=== PATIENT | male | born 1935 | race Caucasian/White ===

== ENCOUNTER 2017-06-30 13:31 | Emergency (ER) | payer MEDICARE ==
--- NOTE | 2017-06-30 14:52 | UC ---
Progress - Progress Note Progress Note: As by NEIL to evaluate foot. Pt with quarter sized eschar on volar aspect great toe on left foot. Pt states has had black area for approx 2 months. pt has been applying topical OTC "corn treatment" Pt states has been seen by other physician and told related to skin build up. Pt states over last 4-5 days has had some drainage so came for eval. no fever, chills. No pain. No odor. Pt without DM. not immuocompromised. pt has had vascular bypass to b/l leg eschar non tender no fluctuance + thick, white, organzied disharge milked from wound. no odor. no bleeding. no discomfort Pt with + CBT < 2 sec surrounding wound and on toes + palpable DP pulses foot warm suspect related to vascular dx vs diabetic ulcer recommend xray and ultrasound culture clinda epsom salt soaks wound care f/u with pcp and possibly vascular surgeon in [place] return precautions discussed pt and spouse comfortable and in agreement with plan
--- NOTE | 2017-06-30 15:12 | RAD ---
HISTORY: Right foot plantar wound COMPARISONS: None VIEWS: 3, Frontal, lateral, and oblique views of the right foot FINDINGS: BONE DENSITY: Normal. BONES: There is post surgical change to the first metatarsal with a fixation screw. There is periprosthetic lucency along the screw. There is no appreciable periosteal reaction. 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 SOFT TISSUES: There is soft tissue defect along the lateral aspect of the fifth MTP joint. There is peripheral arterial calcification. OTHER FINDINGS: None. IMPRESSION: 1. POST SURGICAL CHANGE WITH PERIPROSTHETIC LUCENCY OF THE FIXATION SCREW OF THE FIRST METATARSAL CONCERNING FOR LOOSENING. 2. NO APPRECIABLE PERIOSTEAL REACTION. PLAIN FILM FINDINGS OF OSTEOMYELITIS ARE RELATIVELY LATE FINDINGS. IF THERE IS PERSISTENT CLINICAL CONCERN FOR OSTEOMYELITIS, RECOMMEND CORRELATION WITH FOLLOWUP IMAGING, THREE-PHASE BONE SCANNING, WHITE BLOOD CELL SCAN, AND/OR MRI OF THE AFFECTED REGION.
[2017-06-30 15:57] VITALS: BP 116/65
--- NOTE | 2017-06-30 16:01 | RAD ---
Indication: Draining wound RIGHT foot near the distal end of fifth metatarsal. Comparison: June 30, 2017 radiographs. Technique: Ultrasound in the region of the wound at the lateral plantar aspect of the forefoot. REPORT AND IMPRESSION: Diffuse soft tissue edema. Teardrop shaped weakly loculated small fluid collection measuring 0.6 x 0.2 x 0.4 cm within the subcutaneous tissue plane suspicious for a microabscess. No additional loculated fluid collections visualized.
--- NOTE | 2017-06-30 16:56 | UC ---
HPI Wound/Suture Re-check - HPI Summary HPI Summary: FOR THREE MONTHS HAD BEEN TREATING A PLANTAR CALLUS ON (DISTAL 5TH METATARSAL ASPECT OF) LEFT FOOT. TWO DAYS AGO AREA BEGAN BLACKENING AND BLEEDING. NO FEVER. NO HX OF DIABETES. - History Of Current Complaint Hx Obtained From: Patient, Family/Event Planner Onset/Duration: Gradual Onset, Lasting Weeks, Worse Since - TWO DAYS Severity: Moderate Pain Intensity: 0 Pain Scale Used: 0-10 Numeric <Nimesh Agrawal - Last Filed: 06/30/17 16:51> <Kenzie Storm - Last Filed: 06/30/17 17:28> - History Of Current Complaint Chief Complaint: UCLowerExtremity Stated Complaint: RIGHT FOOT COMPLAINT Time Seen by Provider: 06/30/17 14:28 - Allergies/Home Medications Allergies/Adverse Reactions: Allergies Allergy/AdvReac Type Severity Reaction Status Date / Time Iodine Allergy Severe Swelling Verified 06/30/17 13:54 Of Face,Lips,& Throat Shellfish Allergy Allergy Severe Swelling Verified 06/30/17 13:54 Of Face,Lips,& Throat Cephalosporins Allergy Intermediate Diarrhea Verified 06/30/17 13:54 Spironolactone Allergy Intermediate Diarrhea Verified 06/30/17 13:54 [From Aldactone] Home Medications: Home Medications Aspirin [Aspirin 81 MG TAB] 81 mg PO DAILY 06/30/17 [History Confirmed 06/30/17] PMH/Surg Hx/FS Hx/Imm Hx Previously Healthy: Yes - Surgical History Surgical History: Yes Surgery Procedure, Year, and Place: Femoral artery surgeries, 2 or 3 stents placed. 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 [facility] - Family History Known Family History: Positive: Hypertension, Diabetes - Social History Occupation: Retired Lives: With Family Alcohol Use: None Substance Use Type: None Smoking Status (MU): Former Smoker Type: Cigarettes When Did the Patient Quit Smoking/Using Tobacco: 60 yrs ago - Immunization History Most Recent Tetanus Shot: UTD-2015 <Nimesh Agrawal - Last Filed: 06/30/17 16:51> Review of Systems Constitutional: Negative Skin: Other - DRAINING ULCERATION PLANTAR DISTAL FIFTH METATARSAL ASPECT OF LEFT FOOT Eyes: Negative ENT: Negative Respiratory: Negative Cardiovascular: Negative Gastrointestinal: Negative Genitourinary: Negative Motor: Negative Neurovascular: Negative Musculoskeletal: Negative Neurological: Negative Psychological: Negative Is Patient Immunocompromised?: No All Other Systems Reviewed And Are Negative: Yes <NghiaNimesh - Last Filed: 06/30/17 16:51> Physical Exam Triage Information Reviewed: Yes Appearance: Well-Appearing, No Pain Distress, Well-Nourished Vital Signs: Initial Vital Signs Temp 97.8 F 06/30/17 13:41 Pulse 80 06/30/17 13:41 Resp 20 06/30/17 13:41 BP 140/72 06/30/17 13:41 Vital Signs Reviewed: Yes Eye Exam: Normal ENT Exam: Normal ENT: Positive: Normal ENT inspection Dental Exam: Normal Neck exam: Normal Respiratory Exam: Normal Respiratory: Positive: Chest non-tender, Lungs clear, Normal breath sounds, No respiratory distress, No accessory muscle use Cardiovascular Exam: Normal Cardiovascular: Positive: RRR, No Murmur, Pulses Normal Abdominal Exam: Normal Musculoskeletal Exam: Normal Musculoskeletal: Positive: Strength Intact, ROM Intact, No Edema Neurological Exam: Normal Psychological Exam: Normal Skin: Positive: Other - DRAINING ULCERATION PLANTAR DISTAL FIFTH METATARSAL ASPECT OF LEFT FOOT <NghiaNimesh - Last Filed: 06/30/17 16:51> Vital Signs: Initial Vital Signs Temp 97.8 F 06/30/17 13:41 Pulse 80 06/30/17 13:41 Resp 20 06/30/17 13:41 BP 140/72 06/30/17 13:41 <Kenzie Storm - Last Filed: 06/30/17 17:28> Diagnostics - Radiology No standard instances Xray Interpretation: Positive (See Comments) - Interpreted by radiologist, reviewed by RADHA. Interpretation : ULTRASOUND :Diffuse soft tissue edema. Teardrop shaped weakly loculated small fluid collection measuring 0.6 x 0.2 x 0.4 cm within the subcutaneous tissue plane suspicious for a microabscess. No additional loculated fluid collections visualized. FOOT XRAY: 1. POST SURGICAL CHANGE WITH PERIPROSTHETIC LUCENCY OF THE FIXATION SCREW OF THE FIRST METATARSAL CONCERNING FOR LOOSENING. 2. NO APPRECIABLE PERIOSTEAL REACTION. PLAIN FILM FINDINGS OF OSTEOMYELITIS ARE RELATIVELY LATE FINDINGS. IF THERE IS PERSISTENT CLINICAL CONCERN FOR OSTEOMYELITIS, RECOMMEND CORRELATION WITH FOLLOWUP IMAGING, THREE-PHASE BONE SCANNING, WHITE BLOOD CELL SCAN, AND/OR MRI OF THE AFFECTED REGION. Radiology Interpretation Completed By: ED Physician, Radiologist <Nimesh Agrawal - Last Filed: 06/30/17 16:51> Course/Dx - Course Course Of Treatment: HAD BEEN A PATIENT OF [facility]. REFERRED BOTH TO [facility] AND TO [facility]. GIVEN CLINDAMYCIN ADVISED TO HAVE EPSOM SALT SOAKS. - Differential Dx - Laceration/Wound Differential Diagnoses: Abscess, Cellulitis Provider Diagnoses: WOUND INFECTION/ABSCESS PLANTAR DISTAL FIFTH METATARSAL ASPECT OF LEFT FOOT <Nimesh Agrawal - Last Filed: 06/30/17 16:51> Discharge <Nimesh Agrawal - Last Filed: 06/30/17 16:51> <Kenzie Storm - Last Filed: 06/30/17 17:28> - Discharge Plan Condition: Stable Disposition: HOME Prescriptions: Clindamycin Cap(NF) [Clindamycin Cap 300 mg Cap(NF)] 300 mg PO TID #30 cap Patient Education Materials: Wound Infection (ED), Acute Wound Care (ED), Abscess (ED) Referrals: Omer Junior DO [Primary Care Provider] - Additional Instructions: [facility] [phone] [facility] [phone] Attestation Statement User Type: Provider - I was available for consult. This patient was seen by the NEIL. The patient was not presented to, seen by, or examined by me. -Clement <Kenzie Storm - Last Filed: 06/30/17 17:28>
--- NOTE | 2017-07-02 07:18 | UC ---
Progress - Progress Note Progress Note: + wound culture await sensitivity no change 07/02/17 7:18am
== END 2017-06-30 16:36 | disposition home or self-care (01) ==
LOC: UCCORT 13:31
DX: L02.612 Cutaneous abscess of left foot (principal)
CPT/HCPCS: 87070; 87076; 87077; 87205; 87640; 87641; 99213; G0463

== ENCOUNTER 2017-08-09 09:20 | Emergency (ER) | payer MEDICARE ==
[2017-08-09 09:36] VITALS: BP 143/74
--- NOTE | 2017-08-09 09:46 | UC ---
Eye Complaint HPI - HPI Summary HPI Summary: bilateral eye redness x 1 weeks no eye pain , no change in vision , + yellow discharge - History of Current Complaint Chief Complaint: UCEye Stated Complaint: BILATERAL EYE COMPLAINT Time Seen by Provider: 08/09/17 09:32 Hx Obtained From: Patient Onset/Duration: Gradual Onset, Lasting Days - 7, Still Present Timing: Constant Severity Initially: Moderate Severity Currently: Severe Location of Injury: Conjunctiva Aggravating Factor(s): Nothing Alleviating Factor(s): Nothing Associated Signs And Symptoms: Positive: Drainage (Purulent). Negative: Photophobia, Vision Impairment Bilateral, Vision Impairment Right, Vision Impairment Left, Fever, Swelling - Allergies/Home Medications Allergies/Adverse Reactions: Allergies Allergy/AdvReac Type Severity Reaction Status Date / Time Iodine Allergy Severe Swelling Verified 08/09/17 09:36 Of Face,Lips,& Throat Shellfish Allergy Allergy Severe Swelling Verified 08/09/17 09:36 Of Face,Lips,& Throat Cephalosporins Allergy Intermediate Diarrhea Verified 08/09/17 09:36 Spironolactone Allergy Intermediate Diarrhea Verified 08/09/17 09:36 [From Aldactone] PMH/Surg Hx/FS Hx/Imm Hx Cardiovascular History: Hypertension, Atrial Fibrillation Respiratory History: COPD - Surgical History Surgical History: Yes Surgery Procedure, Year, and Place: Femoral artery surgeries, 2 or 3 stents placed. 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 [facility] - Family History Known Family History: Positive: Hypertension, Diabetes - Social History Alcohol Use: None Substance Use Type: None Smoking Status (MU): Former Smoker Type: Cigarettes When Did the Patient Quit Smoking/Using Tobacco: 60 yrs ago - Immunization History Most Recent Tetanus Shot: UTD-2015 Review of Systems Constitutional: Negative Skin: Negative Eyes: Drainage, Eye Redness ENT: Negative Respiratory: Negative Cardiovascular: Negative Is Patient Immunocompromised?: No All Other Systems Reviewed And Are Negative: Yes Physical Exam Triage Information Reviewed: Yes Appearance: Well-Appearing, No Pain Distress, Well-Nourished Vital Signs: Initial Vital Signs Temp 98 F 08/09/17 09:31 Pulse 98 08/09/17 09:31 Resp 22 08/09/17 09:31 BP 143/74 08/09/17 09:31 Pulse Ox 96 08/09/17 09:31 Vital Signs Reviewed: Yes Eye Exam: Normal Eyes: Positive: Conjunctiva Inflamed - bilateral, Discharge - bilateral ENT: Positive: Normal ENT inspection, Hearing grossly normal, Pharynx normal Neck exam: Normal Neck: Positive: Supple, Nontender, No Lymphadenopathy Respiratory: Positive: Chest non-tender, Lungs clear, Normal breath sounds Cardiovascular: Positive: RRR, No Murmur, Pulses Normal Eye Complaint Course/Dx - Differential Dx/Diagnosis Provider Diagnoses: bilateral conjunctivitis Discharge - Discharge Plan Condition: Stable Disposition: HOME Prescriptions: Tobramycin/Dexameth OPTH.SUSP* [Tobradex 0.3-0.1%*] 1 drop BOTH EYES Q4H #1 btl Patient Education Materials: Conjunctivitis (ED) Referrals: Omer Junior DO [Primary Care Provider] - 3 Days
== END 2017-08-09 09:48 | disposition home or self-care (01) ==
LOC: UCCORT 09:20
DX: H10.9 Unspecified conjunctivitis (principal); Z88.1 Allergy status to other antibiotic agents; Z91.013 Allergy to seafood; Z88.8 Allergy status to other drugs, medicaments and biological substances; Z91.09 Other allergy status, other than to drugs and biological substances; I10 Essential (primary) hypertension; J44.9 Chronic obstructive pulmonary disease, unspecified; Z87.891 Personal history of nicotine dependence
CPT/HCPCS: 99212; G0463

== ENCOUNTER 2017-08-10 12:09 | Emergency (ER) | payer MEDICARE ==
[2017-08-10 12:16] VITALS: BP 132/61
--- NOTE | 2017-08-10 12:30 | UC ---
Epistaxis Nasal HPI - HPI Summary HPI Summary: He was on antibiotics for pneumonia recently and then noted that a week ago INR was 3. He was due to have it check again tomorrow but he now has bleeding from the nose and left inner corner of the eye. - History of Current Complaint Chief Complaint: UCGeneralIllness Stated Complaint: BLOODY NOSE Time Seen by Provider: 08/10/17 12:17 Hx Obtained From: Patient, Family/Lathe Set Up Operator Onset/Duration: Gradual Onset, Lasting Hours Timing: Constant Severity Initially: Moderate Severity Currently: Moderate Character: Light Aggravating Factor(s): Nothing Alleviating Factor(s): Pressure Associated Signs And Symptoms: Positive: Negative - Allergies/Home Medications Allergies/Adverse Reactions: Allergies Allergy/AdvReac Type Severity Reaction Status Date / Time Iodine Allergy Severe Swelling Verified 08/10/17 12:14 Of Face,Lips,& Throat Shellfish Allergy Allergy Severe Swelling Verified 08/10/17 12:14 Of Face,Lips,& Throat Cephalosporins Allergy Intermediate Diarrhea Verified 08/10/17 12:14 Spironolactone Allergy Intermediate Diarrhea Verified 08/10/17 12:14 [From Aldactone] PMH/Surg Hx/FS Hx/Imm Hx Previously Healthy: No - chf, afib. recent pneumonia. - Surgical History Surgical History: Yes Surgery Procedure, Year, and Place: Femoral artery surgeries, 2 or 3 stents placed. 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 old crusted blood in the corner of the left eye. Vital Signs: Initial Vital Signs Temp 98.9 F 08/10/17 12:11 Pulse 97 08/10/17 12:11 Resp 24 08/10/17 12:11 BP 132/61 08/10/17 12:11 Pulse Ox 97 01/21/18 12:11 Vital Signs Reviewed: Yes Eyes: Positive: Conjunctiva Inflamed ENT: Positive: Normal ENT inspection Neck: Positive: Supple, Nontender, No Lymphadenopathy Respiratory: Positive: Normal breath sounds, No respiratory distress, No accessory muscle use. Negative: Respiratory distress Cardiovascular: Positive: Other: - irregular. Abdomen Description: Positive: Nontender, No Organomegaly. Negative: Distended , Guarding Neurological: Positive: Alert, Muscle Tone Normal. Negative: Fatigued Psychological: Positive: Age Appropriate Behavior Skin: Negative: rashes Epistaxis Nasal Course/Dx - Course Course Of Treatment: Send to ED for INR testing immediately. They refuse ambulance. D/w Lindsay at [place] [facility] who accepts patient. - Differential Dx/Diagnosis Provider Diagnoses: epistaxis and lacrimal bleeding on coumadin. Discharge - Discharge Plan Condition: Good Disposition: HOME Referrals: Omer Junior DO [Primary Care Provider] - Additional Instructions: REcently on antibiotics for a pneumonia and they had him check his INR one week ago and it was 3. He now has nose bleed and bleeding for the lacrimal duct area of left eye. No other bleeding. Antibiotics are now done.
== END 2017-08-10 12:30 ==
LOC: UCCORT 12:09
DX: R04.0 Epistaxis (principal); H04.89 Other disorders of lacrimal system; Z79.01 Long term (current) use of anticoagulants; Z87.891 Personal history of nicotine dependence
CPT/HCPCS: 99212; G0463

== ENCOUNTER 2017-11-22 10:00 | Emergency (ER) | payer MEDICARE ==
[2017-11-22 10:59] VITALS: BP 92/48
--- NOTE | 2017-11-22 11:00 | UC ---
Respiratory Complaint HPI - HPI Summary HPI Summary: 81 yr old w/ h/o CAD And AFIB here w/ c/o bleeding left arm. s/p cath w/ 1 stent placed w/ Dr Herndon at [facility] 2 days ago. he is on plavix for reecent stent placement and coumadin for AFIB. INR was reportedly nml 2 days ago w/o any change in dose. -[facility] bleeding from cath site. he does not c/o any SPB or CP. he has been tired b/c he has "gone through hell" the past few days per his . -normally wears O2 at HS only and has normal sats during the day per . -denies belly pain, falls or bruising. no melena or BRBPR. - History of Current Complaint Stated Complaint: SKIN COMPLAINT Time Seen by Provider: 11/22/17 10:47 - Allergies/Home Medications Allergies/Adverse Reactions: Allergies Allergy/AdvReac Type Severity Reaction Status Date / Time MS Iodine [Iodine] Allergy Severe Swelling Verified 08/10/17 12:14 Of Face,Lips,& Throat MS Shellfish Allergy Allergy Severe Swelling Verified 08/10/17 12:14 [Shellfish Allergy] Of Face,Lips,& Throat MS Cephalosporins Allergy Intermediate Diarrhea Verified 08/10/17 12:14 [Cephalosporins] MS Spironolactone Allergy Intermediate Diarrhea Verified 08/10/17 12:14 [From Aldactone] PMH/Surg Hx/FS Hx/Imm Hx Previously Healthy: No Cardiovascular History: Hypertension, Atrial Fibrillation Respiratory History: COPD - Surgical History Surgical History: Yes Surgery Procedure, Year, and Place: Femoral artery surgeries, 2 or 3 stents placed. 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 [facility] - Family History Known Family History: Positive: Hypertension, Diabetes - Social History Alcohol Use: None Substance Use Type: None Smoking Status (MU): Former Smoker Type: Cigarettes When Did the Patient Quit Smoking/Using Tobacco: 60 yrs ago - Immunization History Most Recent Tetanus Shot: UTD-2015 Review of Systems Constitutional: Fatigue Skin: Other - bleeding Eyes: Negative ENT: Negative Respiratory: Negative Cardiovascular: Negative Gastrointestinal: Negative Genitourinary: Negative Motor: Negative Neurovascular: Negative Musculoskeletal: Negative Neurological: Negative Psychological: Negative Is Patient Immunocompromised?: No All Other Systems Reviewed And Are Negative: Yes Physical Exam Triage Information Reviewed: Yes Appearance: Well-Nourished, Ill-Appearing Vital Signs Reviewed: Yes Eye Exam: Normal ENT Exam: Normal Neck exam: Normal Neck: Positive: Supple, Nontender, No Lymphadenopathy Respiratory: Positive: Lungs clear, Normal breath sounds, Other: - sitting comfortably but using abdominal muscles to breath,. Negative: Crackles, Rhonchi , Stridor, Wheezing Cardiovascular: Positive: Other: - irreg/irreg Abdomen Description: Positive: Nontender, Soft, Distended Musculoskeletal Exam: Normal Neurological Exam: Normal Psychological Exam: Normal Skin: Positive: Other - left arm with thick whote bandages w/ dark blood soaking through bottom part (applied this morning by his ). right writs with white clean bandage wrapped around cath entry site. Respiratory Course/Dx - Course Course Of Treatment: Hypoxic down to low 70ss without oxygen SBP in 90s w/ bleeding of left arm on coumadin (chronic AFIB) and plavix. He is reluctant to go to ER but his wofe begged him to go and he agreed. transfer via ALS. - Differential Dx/Diagnosis Differential Diagnosis/HQI/PQRI: Other - hypoxia, hypotension Provider Diagnoses: hypoxia, hypotension, hemorrhaging, CAD, AFIb Discharge - Sign-Out/Discharge Documenting (check all that apply): Discharge/Admit/Transfer - Discharge Plan Condition: Fair Disposition: TRANS HIGHER LVL OF CARE FAC Referrals: Omer Junior DO [Primary Care Provider] - - Billing Disposition and Condition Condition: FAIR Disposition: EMTALA
== END 2017-11-22 11:06 | disposition short-term general hospital (02) ==
LOC: UCCORT 10:00
DX: R09.02 Hypoxemia (principal); I95.9 Hypotension, unspecified; I48.91 Unspecified atrial fibrillation; I97.618 Postprocedural hemorrhage of a circulatory system organ or structure following other circulatory system procedure; Z79.01 Long term (current) use of anticoagulants; I25.10 Atherosclerotic heart disease of native coronary artery without angina pectoris; Z88.1 Allergy status to other antibiotic agents; Z91.013 Allergy to seafood; Z91.041 Radiographic dye allergy status; Z87.891 Personal history of nicotine dependence; Z88.8 Allergy status to other drugs, medicaments and biological substances; L76.22 Postprocedural hemorrhage of skin and subcutaneous tissue following other procedure
CPT/HCPCS: 93005; 99213; G0463

== ENCOUNTER 2017-12-31 19:44 | Emergency (ER) | payer MEDICARE ==
[2017-12-31] MEDS ORDERED: Lidocaine 1% INJ* 10 MG/ML 30 ML SDV INJ ONE (20:00)
--- NOTE | 2017-12-31 20:08 | UC ---
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 He was getting out of his car, and the door hit against his leg. As such, Mr. Stahl and his drove directly here to [facility]. + local pain. Hx neuropathy. Denies hx dm. + BLE edema, did not wear compression stockings today. Takes coumadin d/t atrial fibrillation. Last INR 2.6 per spouse. Last tet booster approx 2 years ago, less than 5 yrs ago per pt. No other c/o's, no sob / cp. No loc / weakness. - History Of Current Complaint Stated Complaint: LEFT LEG LACERATION Time Seen by Provider: 12/31/17 19:48 Hx Obtained From: Patient, Family/Secretary Bookkeeper - Allergies/Home Medications Allergies/Adverse Reactions: Allergies Allergy/AdvReac Type Severity Reaction Status Date / Time iodine Allergy Severe swelling Verified 12/31/17 19:58 of face, lips and troat shellfish derived Allergy Severe swelling Verified 12/31/17 19:58 of face, lips and throat Cephalosporins Allergy Unknown Diarrhea Verified 12/31/17 19:58 spironolactone Allergy Unknown Diarrhea Verified 12/31/17 19:58 [From Aldactone] PMH/Surg Hx/FS Hx/Imm Hx Previously Healthy: No - see below - Surgical History Surgical History: Yes Surgery Procedure, Year, and Place: Femoral artery surgeries, 2 or 3 stents placed. 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 hx neuropathy Musculoskeletal: Other: - see hpi Neurological: Negative Psychological: Negative Is Patient Immunocompromised?: No All Other Systems Reviewed And Are Negative: Yes Physical Exam Triage Information Reviewed: Yes Appearance: Well-Appearing, Well-Nourished Vital Signs Reviewed: Yes Eye Exam: Normal - grossly nad ENT Exam: Normal - grossly nad Neck exam: Normal Respiratory Exam: Normal - RR regular, no tachypnea, no dyspnea. Conversing in full sentances, without difficulty. Cardiovascular Exam: Normal - HR regular, nondiaphoretic. Abdominal Exam: Normal Abdomen Description: Positive: Nontender Musculoskeletal Exam: Other - moves x 4 ext's. Palpable dp pulse, pt faint. Foot warm to touch. Toes deformed. + BLE edema apprx 2+. + venous insuff changes, scattered hemosiderosis, paucity of hair growth. LLE ant lat tib - + full thickness laceration. Oozing, controlled with pressure. Approx 10cm length irreg x approx 1.5cm width. Neurological Exam: Normal - grossly nonactionable. + periph neuropathy, although does Psychological Exam: Normal - conversing easily and appropriately. Skin Exam: Other - see above Laceration Course/Dx - Course/Dx Course Of Treatment: Time out performed. Procedure - laceration repair. Usual sterile technique. Local anesthesia with 7cc 1% lidocaine, no epi. Wound cleansed / irrigated by myself during the course of the laceration repair, once anesthesia administered. Repaired with 16 single interrupted 4.0 prolene sutures. Tolerated well. Reviewed wound care and f/u instructions. Questions as posed answered to the best of my ability. - Differential Dx - Laceration/Wound Provider Diagnoses: LLE laceration repair Discharge - Sign-Out/Discharge Documenting (check all that apply): Discharge/Admit/Transfer - Discharge Plan Condition: Improved Disposition: HOME Patient Education Materials: Laceration (ED), Care For Your Stitches (ED) Referrals: Omer Junior DO [Primary Care Provider] - Additional Instructions: Wear your compression stocking. Please put it on tonight before you go to bed. Elevate your foot as much as possible. Compression stocking at least during the day. Wound check / dressing change - tomorrow. This can be done here or with your primary care physician. Go to the Emergency Department for any problems, including albeit not limited to chest pain, short of breath, bleeding not controllable. Keep dressing on until tomorrow. Consider follow up with Wound Clinic. Be sure to maintain follow up with your primary care physician as scheduled on Friday, one week. Cancel your physical therapy appointment on Friday. - Billing Disposition and Condition Condition: IMPROVED Disposition: Home
[2017-12-31 20:15] VITALS: BP 118/54
== END 2017-12-31 21:52 | disposition home or self-care (01) ==
LOC: UCCORT 19:44
DX: S81.812A Laceration without foreign body, left lower leg, initial encounter (principal); Z87.891 Personal history of nicotine dependence; W22.8XXA Striking against or struck by other objects, initial encounter; Y92.9 Unspecified place or not applicable; I48.91 Unspecified atrial fibrillation; Z79.01 Long term (current) use of anticoagulants; Z88.1 Allergy status to other antibiotic agents; Z88.3 Allergy status to other anti-infective agents; Z91.013 Allergy to seafood; Z82.49 Family history of ischemic heart disease and other diseases of the circulatory system; Z83.3 Family history of diabetes mellitus
CPT/HCPCS: 12054; 99212; G0463

== ENCOUNTER 2018-01-01 09:24 | Emergency (ER) | payer MEDICARE ==
[2018-01-01 11:03] VITALS: BP 120/50
--- NOTE | 2018-01-01 11:36 | UC ---
Skin Complaint HPI - HPI Summary HPI Summary: 82 year old with skin concern. Had lac last night and had sutures placed. here for re check wound. feels well . no pain . no fever. no discharge. no concerns. here as advised to f/u in 1 day. no SOB. No CP . - History of Current Complaint Chief Complaint: UCSkin Time Seen by Provider: 01/01/18 10:57 Stated Complaint: BANDAGE CHANGE Hx Obtained From: Patient, Family/Radiator Tester Onset/Duration: Sudden Onset Pain Intensity: 0 Aggravating Factor(s): Nothing Alleviating Factor(s): Nothing - Allergy/Home Medications Allergies/Adverse Reactions: Allergies Allergy/AdvReac Type Severity Reaction Status Date / Time iodine Allergy Severe swelling Verified 01/01/18 10:57 of face, lips and troat shellfish derived Allergy Severe swelling Verified 01/01/18 10:57 of face, lips and throat Cephalosporins Allergy Unknown Diarrhea Verified 01/01/18 10:57 spironolactone Allergy Unknown Diarrhea Verified 01/01/18 10:57 [From Aldactone] Review of Systems Skin: Other - right leg lac Is Patient Immunocompromised?: No All Other Systems Reviewed And Are Negative: Yes PMH/Surg Hx/FS Hx/Imm Hx Previously Healthy: Yes Cardiovascular History: Hypertension, Atrial Fibrillation - Surgical History Surgical History: Yes Surgery Procedure, Year, and Place: Femoral artery surgeries, 2 or 3 stents placed. 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 [facility] - Family History Known Family History: Positive: Hypertension, Diabetes - Social History Occupation: Retired Alcohol Use: None Substance Use Type: None Smoking Status (MU): Former Smoker Type: Cigarettes When Did the Patient Quit Smoking/Using Tobacco: 60 yrs ago - Immunization History Most Recent Tetanus Shot: D-2015 Physical Exam Triage Information Reviewed: Yes Appearance: Well-Appearing, No Pain Distress, Well-Nourished Vital Signs: Initial Vital Signs Temp 97.2 F 01/01/18 10:58 Pulse 80 01/01/18 10:58 Resp 20 01/01/18 10:58 BP 120/50 01/01/18 10:58 Pulse Ox 97 01/01/18 10:58 Vital Signs Reviewed: Yes Neck: Positive: 1 Respiratory Exam: Normal Cardiovascular Exam: Normal Musculoskeletal Exam: Normal Neurological Exam: Normal Psychological Exam: Normal Skin Exam: Normal Skin: Positive: significant lesion(s) - right lateral distal lower extremity with laceration with sutures placed. in tact. well approximated. (+) ecchymosis in the anterior aspect of the lac. no pain to palpation. no streaking. no Homans. minimal oozing of blood around 3 sutures but intact and no acute concerns. Course/Dx - Course Course Of Treatment: healing well . no acute concerns. since still with oozing will place bandage to have on for 1-2 more days - Diagnoses Provider Diagnoses: laceration right leg- -- wound recheck -- f/u as directed for suture removal Discharge - Sign-Out/Discharge Documenting (check all that apply): Discharge/Admit/Transfer - Discharge Plan Condition: Good Disposition: HOME Patient Education Materials: Laceration (DC) Referrals: Omer Junior DO [Primary Care Provider] - 4 Days - Billing Disposition and Condition Condition: GOOD Disposition: Home
== END 2018-01-01 11:43 | disposition home or self-care (01) ==
LOC: UCCORT 09:24
DX: S81.811D Laceration without foreign body, right lower leg, subsequent encounter (principal); X58.XXXD Exposure to other specified factors, subsequent encounter; I10 Essential (primary) hypertension; Z88.8 Allergy status to other drugs, medicaments and biological substances; Z88.1 Allergy status to other antibiotic agents; Z91.013 Allergy to seafood; Z87.891 Personal history of nicotine dependence
CPT/HCPCS: 99212; G0463

== ENCOUNTER 2018-06-10 10:08 | Emergency (ER) | payer MEDICARE ==
--- OUTSIDE RECORDS SUMMARY | 2018-06-10 10:47 | XMS REPORT ---
:1935 External Reference #:[id number] Author Organization [facility] Address [address], [address] [place] [address] Phone [phone] Care Team Providers Name Role Phone Omer Junior DO Care Team Information Hydrostatic Tester Unavailable Omer Junior DO Primary Care Physician Unavailable Payers Type Date Identification Numbers Payment Provider Subscriber Medicare Primary Policy Number: [id number] Medicare Cardalechristiana Stahl JR PayID: [id number] [address] [place] [address] [facility] Policy Number: [id number] [facility] Cardalechristiana Stahl JR PayID: [id number] [address] [place] [address] Problems Date Description Provider Status Onset: 01/25/2013 Umbilical hernia Jayson Perez MD Active Onset: 07/12/2003 Localized, primary osteoarthritis Active Onset: 02/08/2013 Contusion of lower leg Jayson Perez MD Active Onset: 07/12/2003 Arthralgia of the lower leg Active Family History Date Family Member(s) Problem(s) Comments General Heart Attack General Heart Disease Father due to DE () Father 80 Father due to Heart Attack () Mother Heart Disease Mother due to Congestive Heart () Failure Mother 80 Children 2 both living and healthy Siblings 15 Siblings First Brother Heart Disease First Brother due to DE () Second Brother due to Colon Cancer () Third Brother Prostate Cancer Third Brother due to Aneurysm () Fourth Brother due to Motor Vehicle Accident () Fifth Brother due to Lung Cancer () Sixth Brother due to Auto Accident () First Sister due to Kidney Disease () Second Sister due to Esophagus Cancer () Social History Type Date Description Comments Marital Status Lives With Female Partner Home Environment Lives With spouse Diet Patient is on a low sodium diet Occupation Retired Work Status Retired Cigarette Use Former Cigarette Smoker 1 Pack x 15 yrs. Quit 40 yrs ago Daily ETOH Use socially ETOH Use Currently consumes alcohol Recreational Drug Use Never Used Drugs Smoking Patient is a former smoker Daily Caffeine Current Caffeine User Daily Caffeine coffee Exercise Type/Frequency Does not exercise Allergies, Adverse Reactions, Alerts Date Description Reaction Status Severity Comments 11/13/2009 Iodine throat swells active 11/13/2009 Shellfish-derived Products throat swells active Medications Medication Date Status Form Strength Qnty SIG Indications Ordering Provider Tito Levine 05/28 Active Aerosol 100-62.5- 1mont take 1 J44.9 Kh 25mcg/Inh h puff once MD Marvin a day. rinse mouth after use. Montelukast 04/22 Active Tablets 10mg 30tab take 1 J30.89 Kh s tablet MD Marvin daily. Omeprazole Active Capsules DR 20mg 1 po qd MD [facility] Nitroglycerin Active Tablets Sub 0.4mg 25tab 1 tab prn Chris s MD [facility] Colchicine Active Tablets 0.6mg 30tab 1 po qd , prn MD [facility] Allopurinol Active Tablets 300mg 1 po qd MD [facility] Albuterol Sulfate Active Nebulizer (2.5mg/3M prn L) 0.083% MD [facility] Spironolactone Active Tablets 25mg 90tab 1 po qd s Aspirin Active Tablets 81mg 90tab 1 po qd s Simvastatin Active Tablets 20mg 90tab 1 po qd s Albuterol Active Powder 1 puff q4h prn Furosemide Active Tablets 80mg 60tab 1 po s Metolazone Active Tablets 5mg 30tab 1 po qd s Potassium Active Tablets ER 20Meq 1 by mouth Unknown Chloride Brittaney ER / every day Warfarin Sodium Active Tablets 5mg take one tablet by mouth every day or as directed Metoprolol Active Tablets 25mg 1/2 by Unknown Tartrate mouth twice a day Propylthiouracil Active Tablets 50mg bid Valacyclovir HCL Active Tablets 1gm 1 by mouth every day Memantine HCL ER Active Caps ER 7mg take 1 24HR capsule by mouth once daily for 1 week then 2 capsules mathieu... Warfarin Sodium Active Tablets 7.5mg Junior, Omer, Lisinopril Active Tablets 2.5mg take 1 tablet by mouth once daily Fluorometholone Active Suspension 0.1% 1 Gtt each eye once daily Metoprolol 04/22 Hx Tablets ER 25mg 1 by mouth ChrisJayson Succinate 24HR every day MD [facility] - 04/22 Bevespi 04/22 Hx Aerosol 9-4.8mcg/ 10.70 2 puffs J44.9 [facility] /2017 Act 0gm twice MD Marvin - daily. 05/28 please /2018 teach how to use medication . Cephalexin 11/14 Hx Capsules 500mg 28cap 1 tab po s qid pc MD [facility] - 11/21 Plavix Hx Tablets 75mg 90tab 1 po qd farhana Koenig MD Aspirin Hx Tablets 325mg 1 po qd Chris MD [facility] Viagra Hx Tablets 50mg prn Chrsi MD [facility] Propylthiouracil Hx Tablets 50mg 1 po qd MD [facility] - 12/07 Nifedipine Hx Tablets ER 30mg po qd 24HR MD [facility] Neurontin Hx Capsules 300mg 1 po tid Chris MD [facility] Metoprolol Hx Tablets 50mg 60tab 1 po bid Tar farhana Koenig MD - 04/22 Metolazone Hx Tablets 5mg 1 po qd Chris MD [facility] Lipitor Hx Tablets 10mg 90tab 1 po qd Chris s MD [facility] Lasix Hx Tablets 40mg 1 po qd Chris MD [facility] Altace Hx Tablets 10mg 90tab 1 po qd Chris, s MD [facility] Asmanex 120 Hx Aerosol 220mcg/In puff qd Unknown Metered Doses h - 12/07 Warfarin Sodium Hx Tablets 5mg 90tab as s directed - 12/07 Spiriva Hx Capsules 18mcg 30cap 1 po qd Unknown Handihaler s Fluticasone Hx Suspension 50mcg/Act 1 puff bid Unknown Proair HFA Hx Aerosol 108(90Bas 2 puffs e) mcg/ac q4h prn Coumadin Hx Tablets 7.5mg 90tab as s directed - 12/07 Lactulose Hx Solution 10GM/15ML 1-2 times Unknown /0000 a day - 12/07 Multivitamins Hx Capsules 90cap 1 by mouth Unknown / s every day - 12/07 Sulfamethoxazole/ Hx Tablets 800-160mg 14tab Unknown Trimethoprim s - 12/07 Miralax Hx Powder 3350NF 510gm one cap or Unknown /0000 one heaping teaspoonfu l daily intiially; may increase to one twice a day as needed in a few days prn no bm Niacin Hx Capsules ER 500mg / Viagra Hx Tablets 100mg 10tab 1/2 tab po Unknown /0000 s qd prn as needed Levofloxacin Hx Tablets 250mg 10tab 1 po qd s Eliquis Hx Tablets 5mg 60tab 1 tab by Unknown / s mouth twice a day Anoro Ellipta Hx Aerosol 62.5-25mc take one Unknown /0000 g/Inh puff once daily. Singulair Hx Tablets 10mg 1 by mouth / every day Medications Administered in Office Medication Date Status Form Strength Qnty SIG Indications Ordering Provider Depomedrol Administered Injection Fraga, 40mg/1cc 014 Horace Torres D.O. Vital Signs Date Vital Result Comment 05/28/2018 BP Systolic Sitting Right Arm 118 mmHg BP Diastolic Sitting Right Arm 52 mmHg Heart Rate 87 /min Respiratory Rate 24 /min Height 68.5 inches 5'8.50" Weight 204.00 lb BMI (Body Mass Index) 30.6 kg/m2 BSA (Body Surface Area) 2.07 m2 Roxana body weight in kilograms 71 O2 % BldC Oximetry 99 % Ora 05/19/2018 BP Systolic 119 mmHg BP Diastolic 58 mmHg Heart Rate 86 /min Respiratory Rate 20 /min Height 68.5 inches 5'8.50" Weight 204.00 lb BMI (Body Mass Index) 30.6 kg/m2 BSA (Body Surface Area) 2.07 m2 Roxana body weight in kilograms 71 O2 % BldC Oximetry 91 % 04/22/2018 BP Systolic Sitting Left Arm 102 mmHg BP Diastolic Sitting Left Arm 60 mmHg Heart Rate 60 /min Respiratory Rate 18 /min Height 66 inches 5'6" Weight 202.00 lb BMI (Body Mass Index) 32.6 kg/m2 BSA (Body Surface Area) 2.01 m2 Roxana body weight in kilograms 64 O2 % BldC Oximetry 97 % 03/09/2014 BP Systolic Sitting Left Arm 100 mmHg BP Diastolic Sitting Left Arm 62 mmHg Height 66 inches 5'6" Weight 215.00 lb BMI (Body Mass Index) 34.7 kg/m2 BSA (Body Surface Area) 2.06 m2 12/07/2013 BP Systolic Sitting Right Arm 100 mmHg BP Diastolic Sitting Right Arm 60 mmHg Height 68 inches 5'8" Weight 224.00 lb BMI (Body Mass Index) 34.1 kg/m2 BSA (Body Surface Area) 2.14 m2 01/25/2013 BP Systolic Sitting Right Arm 136 mmHg BP Diastolic Sitting Right Arm 70 mmHg Height 69 inches 5'9" Weight 213.00 lb BMI (Body Mass Index) 31.5 kg/m2 BSA (Body Surface Area) 2.12 m2 03/11/2011 BP Systolic Sitting Left Arm 120 mmHg BP Diastolic Sitting Left Arm 91 mmHg Body Temperature 97.6 F Heart Rate 69 /min Height 69 inches 5'9" Weight 221.00 lb BMI (Body Mass Index) 32.6 kg/m2 11/13/2009 Body Temperature 98.0 F Heart Rate 76 /min Respiratory Rate 20 /min Height 69 inches 5'9" Weight 220.00 lb BMI (Body Mass Index) 32.5 kg/m2 11/28/2005 Height 67.5 inches 5'7.50" Weight 220.00 lb 12/27/2002 Height 73 inches 6'1" Weight 228.00 lb Results Test Date Test Result H/L Range Note Basic Metabolic Panel 11/23/2017 Glucose 106 mg/dL 74-106 1 BUN 88 mg/dL High 7-18 1 Creatinine 1.7 mg/dL High 0.6-1.3 1 Glom Filtration Rate, Estimate 41 mL/min >60 1 If 50 mL/min >60 1, 2 BUN/Creat 51.7 ratio 1 Sodium 129 mmol/L Low 136-145 1 Potassium 5.0 mmol/L 3.5-5.1 1 Chloride 99 mmol/L 98-107 1 Carbon Dioxide 23 mmol/L 21-32 1 Anion Gap 7 mEq/L Low 8-16 1 Calcium 8.6 mg/dL 8.5-10.1 1 CBS W/Automated Diff 11/23/2017 White Blood Count 9.8 K/uL 3.4-10.5 1 Red Blood Count 3.28 M/uL Low 4.20-5.80 1 Hemoglobin 11.7 gm/dL Low 12.8-17.0 1 Hematocrit 35.0 % Low 38.0-48.0 1 Mean Cell Volume 106.7 fl High 80.0-96.0 1 Mean Corpuscular HGB 35.7 pg High 27.0-33.0 1 Mean Corpuscular HGB Conc 33.4 g/dL 31.7-36.0 1 Platelet Count 204 K/uL 155-360 1 Red Cell Distri Width SD 61.9 fl High 36-51 1 Red Cell Distri Width %CV 16.5 % High 11.6-15.8 1 Mean Platelet Volume 10.8 fL High 6.6-10.6 1 Neut% 77.3 % High 33.0-73.0 1 Lymph % 8.2 % Low 20.0-42.0 1 [place] % 13.1 % High 0.0-10.0 1 Eo% 1.4 % 0.0-6.6 1 Bas% 0.0 % 0.0-1.1 1 Neut# 7.53 K/uL High 1.8-7.0 1 Lymph # 0.80 K/uL Low 1.0-4.0 1 [place] # 1.28 K/uL High 0.0-0.8 1 Eos # 0.14 K/uL 0.0-0.5 1 Baso # 0.00 K/uL 0.0-0.1 1 Slide Review 11/23/2017 Slide Review DIFF ORDERED 1 Differential-WBC Confirm 11/23/2017 Total Cells Counted 100 #CELLS 1 Neutrophils% 82 % High 33-73 1 Lymph% 11 % Low 20-42 1 Monocyte% 6 % 0-10 1 Eosinophil% 1 % 0-5 1 Platelet Estimate NORMAL 1 Anisocytosis 0-1+ 1 Macrocytosis 1+ 1 Ovalocytes 1+ 1 Fluid Culture W/ Gram 07/28/2017 Gram Stain NO ORGANISMS SEE <SEE NOTE> 3, 4 Stain Gram Stain RARE WHITE BLOOD <SEE NOTE> 3, 5 Fluid Culture NO GROWTH: FINAL <SEE NOTE> 3, 6 Pleural FLD cc/Diff 07/28/2017 Color YELLOW 3 Pleural FLD Appearance CLOUDY 3 Pleural FLD WBC 162 /uL 0-1000 3 Pleural FLD RBC < 90597 /uL 0-40495 3 Pleural FLD Poly 17 % 0-25 3 Pleural Fluid Lymphs 25 % 3 Pleural FLD Other Cell 56 % 3, 7 Pleural FLD Diff Comment . 3, 8 Laboratory test finding 07/28/2017 Pleural Fluid pH 7.5 Not Estab. 3, 9 Pleural FLD Total Protein 2.1 g/dL . 3, 10 Pleural FLD Albumin 1.3 g/dL . 3, 11 Pleural FLD LDH 67 IU/L . 3, 12 Pleural FLD Glucose 167 mg/dL . 3, 13 Pleural FLD Urea 76 mg/dL . 3, 14 Pleural FLD Amylase 29 U/L . 3, 15 Pleural FLD Chloride 104 mmol/L 3, 16 Respiratory Culture W/Gram 07/24/2017 Gram Stain >10 SQUAMOUS EPI <SEE 17, 18 St NOTE> Gram Stain <25 WBC/LPF 17 Gram Stain RARE GRAM POS BA <SEE NOTE> 17, 19 Gram Stain FEW GRAM POSITIV <SEE NOTE> 17, 20 Respiratory Culture RESPIRATORY CHRISTOS <SEE NOTE> 17, 21 Slide Review 07/24/2017 Slide Review (SEE NOTE) 17, 22 CBS W/Automated Diff 07/24/2017 White Blood Count 17.3 K/uL High 3.4-10.5 17 Red Blood Count 4.22 M/uL 4.20-5.80 17 Hemoglobin 13.8 gm/dL 12.8-17.0 17 Hematocrit 42.7 % 38.0-48.0 17 Mean Cell Volume 101.2 fl High 80.0-96.0 17 Mean Corpuscular HGB 32.7 pg 27.0-33.0 17 Mean Corpuscular HGB Conc 32.3 g/dL 31.7-36.0 17 Platelet Count 229 K/uL 155-360 17 Red Cell Distri Width SD 59.0 fl High 36-51 17 Red Cell Distri Width %CV 16.5 % High 11.6-15.8 17 Mean Platelet Volume 10.7 fL High 6.6-10.6 17 Neut% 93.9 % High 33.0-73.0 17 Lymph % 2.6 % Low 20.0-42.0 17 [place] % 3.4 % 0.0-10.0 17 Eo% 0.0 % 0.0-6.6 17 Bas% 0.1 % 0.0-1.1 17 Neut# 16.21 K/uL High 1.8-7.0 17 Lymph # 0.45 K/uL Low 1.0-4.0 17 [place] # 0.58 K/uL 0.0-0.8 17 Eos # 0.00 K/uL 0.0-0.5 17 Baso # 0.01 K/uL 0.0-0.1 17 Continuous Oximetry 07/24/2017 Oximetry 93 % 93-98 17 Fio2 21 21-100 17 Heart Rate 70 BPM 17 Patient Status RESTING 17 Patient Position SITTING ON BEDSI <SEE NOTE> 17, 23 Continuous Oximetry 07/24/2017 Oximetry 92 % Low 93-98 17 O2l/Min 2 L/min 17 Oximetry Delivery N/C 17 Heart Rate 90 BPM 17 Patient Status AMBULATING 17 Patient Position STANDING 17 Continuous Oximetry 07/24/2017 Oximetry 88 % Low 93-98 17 Fio2 21 21-100 17 Heart Rate 90 BPM 17 Patient Status AMBULATING 17 Patient Position STANDING 17 Protime 07/24/2017 Protime 24.8 seconds High 12.0-14.4 17 Inr 2.3 High 0.9-1.1 17, 24 Laboratory test finding 07/24/2017 C-Reactive Protein,Quant 107.0 mg/L High <3.0 17 Comprehensive Metabolic 07/24/2017 Glucose 173 mg/dL High 74-106 17 Panel BUN 70 mg/dL High 7-18 17 Creatinine 1.7 mg/dL High 0.6-1.3 17 Glom Filtration Rate, Estimate 41 mL/min >60 17 If 50 mL/min >60 17, 25 BUN/Creat 41.1 ratio 17 Sodium 139 mmol/L 136-145 17 Potassium 4.0 mmol/L 3.5-5.1 17 Chloride 101 mmol/L 98-107 17 Carbon Dioxide 27 mmol/L 21-32 17 Anion Gap 11 mEq/L 8-16 17 Calcium 9.1 mg/dL 8.5-10.1 17 Total Protein 7.7 g/dL 6.4-8.2 17 Albumin 3.5 g/dL 3.4-5.0 17 Globulin 4.2 g/dL 1.9-4.3 17 Alb/Glob 0.8 ratio 17 Bilirubin,Total 0.5 mg/dL 0.2-1.0 17 Sgot/Ast 19 U/L 15-37 17 SGPT/Alt 22 U/L 12-78 17 Alkaline Phosphatase 63 U/L 45-117 17 Laboratory test finding 07/23/2017 Potassium 3.8 mmol/L 3.5-5.1 17 Magnesium 2.5 mg/dL High 1.8-2.4 17 Aot Request 07/23/2017 Aot Request Already done 17, 26 Tests to be added: MAGNESIUM 17 Laboratory test 07/23/2017 C-Reactive Protein,Quant 124.0 mg/L High <3.0 17, 27 finding Troponin-I 0.059 ng/mL 17, 28 Magnesium 2.4 mg/dL 1.8-2.4 17, 29 Comprehensive Metabolic Panel 07/23/2017 Glucose 155 mg/dL High 74-106 17 BUN 49 mg/dL High 7-18 17 Creatinine 1.3 mg/dL 0.6-1.3 17 Glom Filtration Rate, Estimate 56 mL/min >60 17 If >60 mL/min >60 17, 30 BUN/Creat 37.6 ratio 17 Sodium 137 mmol/L 136-145 17 Potassium 3.2 mmol/L Low 3.5-5.1 17 Chloride 98 mmol/L 98-107 17 Carbon Dioxide 30 mmol/L 21-32 17 Anion Gap 9 mEq/L 8-16 17 Calcium 8.5 mg/dL 8.5-10.1 17 Total Protein 6.8 g/dL 6.4-8.2 17 Albumin 3.1 g/dL Low 3.4-5.0 17 Globulin 3.7 g/dL 1.9-4.3 17 Alb/Glob 0.8 ratio 17 Bilirubin,Total 0.6 mg/dL 0.2-1.0 17 Sgot/Ast 21 U/L 15-37 17 SGPT/Alt 23 U/L 12-78 17 Alkaline Phosphatase 57 U/L 45-117 17 Protime 07/23/2017 Protime 21.5 seconds High 12.0-14.4 17 Inr 1.9 High 0.9-1.1 17, 31 CBS W/Automated Diff 07/23/2017 White Blood Count 13.4 K/uL High 3.4-10.5 17 Red Blood Count 3.88 M/uL Low 4.20-5.80 17 Hemoglobin 12.7 gm/dL Low 12.8-17.0 17 Hematocrit 39.4 % 38.0-48.0 17 Mean Cell Volume 101.5 fl High 80.0-96.0 17 Mean Corpuscular HGB 32.7 pg 27.0-33.0 17 Mean Corpuscular HGB Conc 32.2 g/dL 31.7-36.0 17 Platelet Count 169 K/uL 155-360 17 Red Cell Distri Width SD 59.8 fl High 36-51 17 Red Cell Distri Width %CV 16.5 % High 11.6-15.8 17 Mean Platelet Volume 10.5 fL 6.6-10.6 17 Neut% 95.3 % High 33.0-73.0 17 Lymph % 3.1 % Low 20.0-42.0 17 [place] % 1.6 % 0.0-10.0 17 Eo% 0.0 % 0.0-6.6 17 Bas% 0.0 % 0.0-1.1 17 Neut# 12.73 K/uL High 1.8-7.0 17 Lymph # 0.42 K/uL Low 1.0-4.0 17 [place] # 0.21 K/uL 0.0-0.8 17 Eos # 0.00 K/uL 0.0-0.5 17 Baso # 0.00 K/uL 0.0-0.1 17 Streptococcus Pneumoniae Ag,Ur 07/23/2017 Specimen Source Urine . 17 Streptococcus Pneumoniae Ag,Ur NEGATIVE Negative 17 Body Fluid Culture, Sterile Not Indicated . 17 Organism Id Not indicated. . 17 Please Note: (SEE NOTE) 17, 32 Aot Request 07/23/2017 Aot Request Test(s) added 17, 33 Tests to be added: troponin 17 Aot Request 07/23/2017 Aot Request Test(s) added 17, 34 Tests to be added: magnesium 17 Laboratory test finding 07/22/2017 Troponin-I 0.082 ng/mL 17, 35 Ua RFX Micro & Culture II 07/22/2017 Urine Color YELLOW Yellow 17 Urine Clarity CLEAR Clear 17 Urine Glucose - Dipstick NEGATIVE mg/dL Negative 17 Urine Bilirubin - Dipstick NEGATIVE Negative 17 Urine Ketone NEGATIVE mg/dL Negative 17 Urine Specific Gordon 1.015 1.010-1.030 17 Urine Blood NEGATIVE Negative 17 Urine PH 5.0 Low 6.5-7.5 17 Urine Protein - Dipstick NEGATIVE mg/dL Negative 17 Urine Urobilinogen - Dipstick 0.2 E.U./dL 0.2-1.0 17 Urine Nitrite - Dipstick NEGATIVE Negative 17 Urine Leuk Esterase NEGATIVE Negative 17 Source: URINE, CLEAN CAT <SEE NOTE> 17, 36 Laboratory test 07/22/2017 Legionella Urinary Negative Negative 17, 37 finding Antigen Laboratory test 07/22/2017 Troponin-I 0.077 ng/mL 17, 38 finding C-Reactive Protein,Quant 77.9 mg/L High <3.0 17 Legionella Culture 07/22/2017 Legionella Culture No Legionella sp <SEE 17, 39 NOTE> Blood Culture 07/22/2017 Blood Culture Aerobic NO GROWTH: FINAL <SEE 17 , 40 NOTE> Blood Culture Anaerobic NO GROWTH: FINAL <SEE NOTE> 17, 41 Blood Culture 07/22/2017 Blood Culture Aerobic NO GROWTH: FINAL <SEE NOTE> 17, 42 Blood Culture Anaerobic NO GROWTH: FINAL <SEE NOTE> 17, 43 CBC 04/20/2017 White Blood Count 6.5 K/uL 3.4-10.5 44 Red Blood Count 4.37 M/uL 4.20-5.80 44 Hemoglobin 14.1 gm/dL 12.8-17.0 44 Hematocrit 43.8 % 38.0-48.0 44 Mean Cell Volume 100.2 fl High 80.0-96.0 44 Mean Corpuscular HGB 32.3 pg 27.0-33.0 44 Mean Corpuscular HGB Conc 32.2 g/dL 31.7-36.0 44 Platelet Count 206 K/uL 150-400 44 Red Cell Distri Width %CV 16.8 % High 11.6-15.8 44 Mean Platelet Volume 10.3 fL 6.6-10.6 44 Protime 04/20/2017 Protime 35.8 seconds High 12.0-14.4 44 Inr 3.7 High 0.9-1.1 44, 45 Basic Metabolic Panel 04/20/2017 Glucose 90 mg/dL 74-106 44 BUN 58 mg/dL High 7-18 44 Creatinine 1.4 mg/dL High 0.6-1.3 44 Glom Filtration Rate, Estimate 52 mL/min >60 44 If >60 mL/min >60 44, 46 BUN/Creat 41.4 ratio 44 Sodium 140 mmol/L 136-145 44 Potassium 3.5 mmol/L 3.5-5.1 44 Chloride 101 mmol/L 98-107 44 Carbon Dioxide 32 mmol/L 21-32 44 Anion Gap 7 mEq/L Low 8-16 44 Calcium 8.9 mg/dL 8.5-10.1 44 Laboratory test finding 04/20/2017 Magnesium 2.5 mg/dL High 1.8-2.4 44 Basic Metabolic Panel 04/19/2017 Glucose 115 mg/dL High 74-106 44 BUN 53 mg/dL High 7-18 44 Creatinine 1.6 mg/dL High 0.6-1.3 44 Glom Filtration Rate, Estimate 44 mL/min >60 44 If 54 mL/min >60 44, 47 BUN/Creat 33.1 ratio 44 Sodium 137 mmol/L 136-145 44 Potassium 3.8 mmol/L 3.5-5.1 44 Chloride 98 mmol/L 98-107 44 Carbon Dioxide 30 mmol/L 21-32 44 Anion Gap 9 mEq/L 8-16 44 Calcium 9.0 mg/dL 8.5-10.1 44 Laboratory test finding 04/19/2017 Magnesium 2.5 mg/dL High 1.8-2.4 44 CBC 04/18/2017 White Blood Count 7.1 K/uL 3.4-10.5 44 Red Blood Count 4.49 M/uL 4.20-5.80 44 Hemoglobin 14.5 gm/dL 12.8-17.0 44 Hematocrit 44.6 % 38.0-48.0 44 Mean Cell Volume 99.3 fl High 80.0-96.0 44 Mean Corpuscular HGB 32.3 pg 27.0-33.0 44 Mean Corpuscular HGB Conc 32.5 g/dL 31.7-36.0 44 Platelet Count 211 K/uL 150-400 44 Red Cell Distri Width %CV 17.1 % High 11.6-15.8 44 Mean Platelet Volume 10.7 fL High 6.6-10.6 44 Basic Metabolic Panel 04/18/2017 Glucose 110 mg/dL High 74-106 44 BUN 45 mg/dL High 7-18 44 Creatinine 1.6 mg/dL High 0.6-1.3 44 Glom Filtration Rate, Estimate 44 mL/min >60 44 If 54 mL/min >60 44, 48 BUN/Creat 28.1 ratio 44 Sodium 136 mmol/L 136-145 44 Potassium 3.7 mmol/L 3.5-5.1 44 Chloride 96 mmol/L Low 98-107 44 Carbon Dioxide 33 mmol/L High 21-32 44 Anion Gap 7 mEq/L Low 8-16 44 Calcium 9.4 mg/dL 8.5-10.1 44 Laboratory test finding 04/18/2017 Magnesium 2.4 mg/dL 1.8-2.4 44 CBC 04/17/2017 White Blood Count 8.9 K/uL 3.4-10.5 44 Red Blood Count 4.25 M/uL 4.20-5.80 44 Hemoglobin 13.8 gm/dL 12.8-17.0 44 Hematocrit 42.6 % 38.0-48.0 44 Mean Cell Volume 100.2 fl High 80.0-96.0 44 Mean Corpuscular HGB 32.5 pg 27.0-33.0 44 Mean Corpuscular HGB Conc 32.4 g/dL 31.7-36.0 44 Platelet Count 185 K/uL 150-400 44 Red Cell Distri Width %CV 17.4 % High 11.6-15.8 44 Mean Platelet Volume 10.6 fL 6.6-10.6 44 Protime 04/17/2017 Protime 26.6 seconds High 12.0-14.4 44 Inr 2.5 High 0.9-1.1 44, 49 Basic Metabolic Panel 04/17/2017 Glucose 84 mg/dL 74-106 44 BUN 43 mg/dL High 7-18 44 Creatinine 1.6 mg/dL High 0.6-1.3 44 Glom Filtration Rate, Estimate 44 mL/min >60 44 If 54 mL/min >60 44, 50 BUN/Creat 26.8 ratio 44 Sodium 135 mmol/L Low 136-145 44 Potassium 4.2 mmol/L 3.5-5.1 44 Chloride 96 mmol/L Low 98-107 44 Carbon Dioxide 32 mmol/L 21-32 44 Anion Gap 7 mEq/L Low 8-16 44 Calcium 9.0 mg/dL 8.5-10.1 44 Laboratory test finding 04/17/2017 Magnesium 2.3 mg/dL 1.8-2.4 44 Legionella Culture 04/15/2017 Legionella Culture (SEE NOTE) 44, 51 Arterial Blood Gas 02/21/2016 Abraham's Test YES Performed? Arterial Blood Gas pH 7.47 High 7.35-7.45 Arterial Blood Gas Pco2 37 mmHg 35-45 Arterial Blood Gas Po2 82 mmHg 80-105 ABG Hco3 26 mEq/L 22-26 ABG Base Excess 3 mEq/L High -2-2 ABG O2 Saturation 96 % 90-99 Arterial Blood Gas Type OXYGEN Arterial Blood Gas L/M 3 L/MIN 0-20 Arterial Blood Gas Del. N/C Arterial Blood Gas Site R.RAD.ART. Arterial Blood Gas See Note 52 Basic Metabolic Panel 03/30/2013 Glucose 123 mg/dL High 76-115 BUN 18 mg/dL 5-23 Creatinine 1.1 mg/dL 0.5-1.4 Glom Filtration Rate, Estimate >60 mL/min >60 If >60 mL/min >60 53 BUN/Creat 16.3 ratio Sodium 136 mmol/L 136-145 Potassium 3.8 mmol/L 3.5-5.1 Chloride 98 mmol/L 98-107 Carbon Dioxide 34 mEq/L High 18-29 Anion Gap 8 mEq/L 8-16 Calcium 9.0 mg/dL 8.5-10.1 Culture Anaerobic 02/11/2013 Gram Stain; Anaerobic Specimen See Note 54 Anaerobic Culture See Note 55 Routine Culture W/ Gram Stain 02/11/2013 Gram Stain See Note 56 Aerobic Culture See Note 57 Protime 02/10/2013 Protime 19.7 seconds High 12.0-14.4 Laboratory test finding 02/10/2013 Inr 1.7 High 0.9-1.1 58 Laboratory test finding 02/08/2013 Inr 1.9 High 0.9-1.1 59 Protime 02/08/2013 Protime 21.4 seconds High 12.0-14.4 Routine Culture W/ Gram Stain 11/15/2009 Gram Stain See Note 60 Aerobic Culture See Note 61 Anaerobic Culture W/ GR Stain 11/15/2009 Gram Stain; Anaerobic See Note 62 Specimen Anaerobic Culture See Note 63 Laboratory test finding 11/14/2009 Cyst, Cutaneous See Note 64 1 ACUTE KIDNEY INJURY 2 Note: Persistent reduction for 3 months or more in an eGFR <60 mL/min/1.73 m2 defines CKD. Patients with eGFR values >/=60 mL/min/1.73 m2 may also have CKD if evidence of persistent proteinuria is present. The original MDRD equation for estimated GFR is not valid for patients less than 18 years of age. Additional information may be found at www.[facility].org. 3 PLEURAL EFFUSION 4 NO ORGANISMS SEEN 5 RARE WHITE BLOOD CELLS 6 NO GROWTH: FINAL REPORT 7 11 MESOTHELIAL 47 MACROPHAGES 8 Hematology Consultation Final Report Case# [id number] Final Diagnosis Specimen labeled pleural fluid, cytospin: -the specimen shows benign mesothelial cells, monocytes, neutrophils, lymphocytes, and red blood cells. GY 07/29/17 Gross Description: pleural fluid MU COLON MD, Pathologist Reported 07/29/2017 at 11:44, Report electronically signed Performed at: [facility] [address] [address] 9 This test was developed and its performance characteristics determined by [employer]. It has not been cleared or approved by the Food and Drug Administration. Performed at: RN - [facility] [address] [id number] Property Utilization Manager: Sweta Hernadez MD, Phone: [phone] 10 : Peritoneal : Pleural : Synovial : : : : : : : Transudate : Exudate : : : : : : : : Not Estab. : <3 g/dL : >3 g/dL : <2.5 g/dL : : : : : : The method performance specifications have not been established for this test in body fluid. The test result should be integrated into the clinical context for interpretation. The method performance specifications have not been established for this test in body fluid. The test result should be integrated into the clinical context for interpretation. 11 : Peritoneal : Pleural : Synovial : : : : : : : Transudate : Exudate : : : : : : : : Not Estab. : Not Estab. : Not Estab.: Not Estab. : : : : : : The method performance specifications have not been established for this test in body fluid. The test result should be integrated into the clinical context for interpretation. The reference intervals and other method performance specifications have not been established for this test. The test result should be integrated into the clinical context for interpretation. 12 : Peritoneal : Pleural : Synovial : CSF : : : : : : : : Transudate: Exudate : : : : : : : : : : Not Estab. : <200 U/L : >200 U/L : <240 U/L : Not Estab.: : : : : : The method performance specifications have not been established for this test in body fluid. The test result should be integrated into the clinical context for interpretation. The reference intervals and other method performance specifications have not been established for this test. The test result should be integrated into the clinical context for interpretation. 13 : Peritoneal : Pleural : Synovial : : : : : : : Transudate : Exudate : : : : : : : : Not Estab. : Equal to simultaneously drawn plasma : : : : The method performance specifications have not been established for this test in body fluid. The test result should be integrated into clinical context for interpretation. The reference intervals and other method performance specifications have not been established for this test. The test result should be integrated into the clinical context for interpretation. 14 : Peritoneal : Pleural : Synovial : : : : : : : Transudate : Exudate : : : : : : : : 3-27 mg/dL : Not Estab. : Not Estab.: Not Estab. : : : : : : The method performance specifications have not been established for this test in body fluid. The test result should be integrated into the clinical context for interpretation. The reference intervals and other method performance specifications have not been established for this test. The test result should be integrated into the clinical context for interpretation. Performed at: [address] [id number] Property Utilization Manager: Sweta Hernadez MD, Phone: [phone] No Reference Range has been established for analyte. 15 : Peritoneal : Pleural : Synovial : : : : : : : Transudate : Exudate : : : : : : : : 88-109 U/L : Not Estab. : Not Estab.: Not Estab. : : : : : : The method performance specifications have not been established for this test in body fluid. The test result should be integrated into the clinical context for interpretation. The method performance specifications have not been established for this test in body fluid. The test result should be integrated into the clinical context for interpretation. 16 : Peritoneal : Pleural : Synovial : : : : : : : Transudate : Exudate : : : : : : : : Not Estab. : Not Estab. : Not Estab.: Not Estab. : : : : : : The method performance specifications have not been established for this test in body fluid. The test result should be integrated into the clinical context for interpretation. The reference intervals and other method performance specifications have not been established for this test. The test result should be integrated into the clinical context for interpretation. Performed at: RN - [facility] [address] [id number] Property Utilization Manager: Sweta Hernadez MD, Phone: [phone] 17 SEPSIS, CELLULITIS CHF 18 >10 SQUAMOUS EPITHELIAL CELLS/LPF 19 RARE GRAM POS BACILLI SUGGESTIVE OF DIPTHEROIDS 20 FEW GRAM POSITIVE COCCI 21 RESPIRATORY SHYANN 22 Instrument flagged sample for slide review. Less than 10% Bands seen, no other immature WBC's seen. RBC morphology essentially normal. Platelet estimate=NORMAL 23 SITTING ON BEDSIDE 24 THERAPEUTIC INR RANGE: 2.0 - 3.0 DVT, Pulmonary embolus, prophylaxis against venous thrombosis or systemic embolization in high risk patients. 2.5 - 3.5 Mechanical heart valves 25 Note: Persistent reduction for 3 months or more in an eGFR <60 mL/min/1.73 m2 defines CKD. Patients with eGFR values >/=60 mL/min/1.73 m2 may also have CKD if evidence of persistent proteinuria is present. The original MDRD equation for estimated GFR is not valid for patients less than 18 years of age. Additional information may be found at [email or web address]. 26 Tests: MAGNESIUM Instructions: 27 TROP ADDED AT 1147 PER TRM 28 0.0 - 0.045 ng/mL: Normal 0.046 - 0.5 ng/mL: Suggestive 0.6 - 1.5 ng/mL: Consistent 29 TROP ADDED AT 1147 PER TRM 30 Note: Persistent reduction for 3 months or more in an eGFR <60 mL/min/1.73 m2 defines CKD. Patients with eGFR values >/=60 mL/min/1.73 m2 may also have CKD if evidence of persistent proteinuria is present. The original MDRD equation for estimated GFR is not valid for patients less than 18 years of age. Additional information may be found at [email or web address]. 31 THERAPEUTIC INR RANGE: 2.0 - 3.0 DVT, Pulmonary embolus, prophylaxis against venous thrombosis or systemic embolization in high risk patients. 2.5 - 3.5 Mechanical heart valves 32 [employer] standards require a culture to be performed on CSF specimens submitted for bacterial antigen testing. (CAP [id number]) Urine specimens will not be cultured. Performed at: - [facility] [id number] Property Utilization Manager: Mark Handley MD, Phone: [phone] 33 Tests: troponin Instructions: 34 Tests: magnesium Instructions: 35 0.0 - 0.045 ng/mL: Normal 0.046 - 0.5 ng/mL: Suggestive 0.6 - 1.5 ng/mL: Consistent 36 URINE, CLEAN CATCH 37 Presumptive negative for L. pneumophila serogroup 1 antigen in urine, suggesting no recent or current infection. Legionnaires' disease cannot be ruled out since other serogroups and species may also cause disease. 38 0.0 - 0.045 ng/mL: Normal 0.046 - 0.5 ng/mL: Suggestive 0.6 - 1.5 ng/mL: Consistent 39 No Legionella species isolated. Performed at: - [facility] [address] [id number] Property Utilization Manager: Sweta Hernadez MD, Phone: [phone] 40 NO GROWTH: FINAL REPORT 41 NO GROWTH: FINAL REPORT 42 NO GROWTH: FINAL REPORT 43 NO GROWTH: FINAL REPORT 44 CHF, CELLUITIS LEGS, SEVERE SEPSIS 45 THERAPEUTIC INR RANGE: 2.0 - 3.0 DVT, Pulmonary embolus, prophylaxis against venous thrombosis or systemic embolization in high risk patients. 2.5 - 3.5 Mechanical heart valves 46 Note: Persistent reduction for 3 months or more in an eGFR <60 mL/min/1.73 m2 defines CKD. Patients with eGFR values >/=60 mL/min/1.73 m2 may also have CKD if evidence of persistent proteinuria is present. The original MDRD equation for estimated GFR is not valid for patients less than 18 years of age. Additional information may be found at [email or web address]. 47 Note: Persistent reduction for 3 months or more in an eGFR <60 mL/min/1.73 m2 defines CKD. Patients with eGFR values >/=60 mL/min/1.73 m2 may also have CKD if evidence of persistent proteinuria is present. The original MDRD equation for estimated GFR is not valid for patients less than 18 years of age. Additional information may be found at [email or web address]. 48 Note: Persistent reduction for 3 months or more in an eGFR <60 mL/min/1.73 m2 defines CKD. Patients with eGFR values >/=60 mL/min/1.73 m2 may also have CKD if evidence of persistent proteinuria is present. The original MDRD equation for estimated GFR is not valid for patients less than 18 years of age. Additional information may be found at [email or web address]. 49 THERAPEUTIC INR RANGE: 2.0 - 3.0 DVT, Pulmonary embolus, prophylaxis against venous thrombosis or systemic embolization in high risk patients. 2.5 - 3.5 Mechanical heart valves 50 Note: Persistent reduction for 3 months or more in an eGFR <60 mL/min/1.73 m2 defines CKD. Patients with eGFR values >/=60 mL/min/1.73 m2 may also have CKD if evidence of persistent proteinuria is present. The original MDRD equation for estimated GFR is not valid for patients less than 18 years of age. Additional information may be found at [email or web address]. 51 No Legionella species isolated. Performed at: RN - [facility] [address] [id number] Property Utilization Manager: Sweta Hernadez MD, Phone: [phone] 52 WRONG ADMISSION USED FOR THIS PATIENT FOR ABG DOCUMENTATION. 53 Note: Persistent reduction for 3 months or more in an eGFR <60 mL/min/1.73 m2 defines CKD. Patients with eGFR values >/=60 mL/min/1.73 m2 may also have CKD if evidence of persistent proteinuria is present. The original MDRD equation for estimated GFR is not valid for patients less than 18 years of age. Additional information may be found at [email or web address]. 54 GRAM STAIN ! FEW WHITE BLOOD CELLS ! NO ORGANISMS SEEN 55 Organism 1 ! NO GROWTH 56 GRAM STAIN ! FEW WHITE BLOOD CELLS ! NO ORGANISMS SEEN 57 NO GROWTH: FINAL REPORT 58 THERAPEUTIC INR RANGE: 2.0 - 3.0 DVT, Pulmonary embolus, prophylaxis against venous thrombosis or systemic embolization in high risk patients. 2.5 - 3.5 Mechanical heart valves 59 THERAPEUTIC INR RANGE: 2.0 - 3.0 DVT, Pulmonary embolus, prophylaxis against venous thrombosis or systemic embolization in high risk patients. 2.5 - 3.5 Mechanical heart valves 60 GRAM STAIN ! VERY FEW GRAM POSITIVE COCCI 61 Organism 1 ! NO GROWTH 62 GRAM STAIN ! NO ORGANISMS SEEN 63 FEW NON-VIABLE ANAEROBIC GRAM POSITIVE BACILLI, PROBABLE PROPIONBACTERIUM 64 OPERATION/PROCEDURE Exc. left neck lump DIAGNOSIS: "LEFT NECK CYST": RUPTURED EPIDERMAL INCLUSION CYST. PRADIP/marissa 1216 GROSS Received in formalin labeled "LEFT NECK LUMP" is a 2.5 x 2.1 x 1.8 cm. piece of dillard rubbery tissue with attached skin ellipse measuring 2.5 x 0.6 cm. The majority of the tissue is composed of thin walled cyst with cream cheese-like contents. The surgical margin is inked, the specimen serially sectioned and hostess party sales representative section is submitted in one block. ADA/marissa MICROSCOPIC Sections show sections of skin and dermis with a massive acute inflammatory reaction with sheets of polynuclear lymphocytes, adjacent to a thin walled cystic structure lined by squamous epithelium with a granular layer and central keratinous debris. PRE OPERATIVE DIAGNOSIS Left neck infected cyst REVIEW CODE CODE: I MARK Osorio MD 11/16/09 Procedures Date CPT Code Description Status 05/19/2018 23854 Pare Hyperkeratotic Lesion, 2-4 Completed 05/11/2018 87771 Bronchospasm Provocation Evaluation Multi Spirometric Completed Determinati 05/11/2018 97704 Spirometry Completed 04/16/2017 38512 Echocardiogram Complete Completed 09/04/2016 81545 Stress Test Interpre And Report Only Completed 09/04/2016 03402 Stress Test Physician Super Only Completed 09/04/2016 90468 Myocardial Imaging Tomographic Multiple Study AT Rest Completed Or Stress 05/22/2015 93762 Echocardiogram Complete Completed 12/07/2013 28732 Radiology, Both Knees Standing Completed 12/07/201371725 Asp./Injection major joint Completed 10/11/2013 81908 Conscious Sedation For Colonsocopy Completed 04/05/2013 80180 Holter Monitor 24HR Inter/Report Completed 03/02/2013 24212 Holter Monitor 24HR Inter/Report Completed 02/11/2013 61888 Incision And Drainage Of Hematoma, Seroma Or Fluid Completed Collection 02/08/2013 66461 Incision And Drainage Of Hematoma, Seroma Or Fluid Completed Collection 01/07/2013 49149 Echocardiogram Complete Completed 10/30/2010 02400 Anesthesia, Lens Surgery Completed 10/16/2010 49635 Anesthesia, Lens Surgery Completed 03/14/2010 60563 EKG Interpretation And Report Only Completed 02/26/2010 65860 Echocardiogram Complete Completed 11/14/2009 28801 I&D Abscess-Complicated/Multiple Completed 10/21/2008 66713 EKG Interpretation And Report Only Completed 10/20/2008 57227 Echocardiogram Complete Completed 07/21/2007 Colonoscopy Completed 11/28/200514689 Asp./Injection major joint Completed Encounters Type Date Location Provider CPT E/M Dx Office Visit 04/22/2018 3:00p [place] [address] J44.9 J90 J30.89 Office Visit 04/16/2017 3:13p Cardiology Office [place], Per MNichol, [address] I50.9 M.D., [facility] I50.32 J90 L03.115 A41.9 Office Visit 11/09/2014 1[facility] [place] [address] [facility] 491.21 Office Visit 02/22/2014 2:45p Orthopaedic Office Horace Fraga, 80688 717.2 D.O. Office Visit 01/12/2014 2:00p Orthopaedic Office Horace Fraga, 03868 717.2 D.O. Office Visit 12/07/2013 1:30p Orthopaedic Office Horace Fraga, 69790 715.16 D.O. Office Visit 10/05/2013 3:00p [facility] Lalo Matos, 60229 569.3 [facility].DNichol 496 427.31 428.0 Office Visit 02/08/2013 11:00a [place] [address] 924.10 Office Visit 01/25/2013 2:00p [place] [address] 553.1 Office Visit 03/11/2011 10:00a [place] [address] 553.1 Office Visit 11/20/2009 3:00p [place] [address] 706.2 Office Visit 11/15/2009 1:00p [place] [address] 706.2 Office Visit 01/04/2009 10:45a [place] [address] 784.2 Plan of Care Future Appointment(s):09/29/2018 11:00 am - Gwen Dubon PA at [email or web address]/ 08/2019 9:45 am - Amanuel Hickey DPM at Podiatry Vjogyv9405/28/2018 - Marvin Bolton MDJ44.9 Chronic obstructive pulmonary disease, unspecifiedNew Medication: Trelegy Ellipta 100-62.5-25 mcg/InhComments:You can finish this months supply of Bevespi. You will then start Trelegy (triple inhaler) one puff in the morning. You should use your albuterol nebulizer 1 hour prior to going to sleep.Follow up:4 [id number] Pleural effusion, not elsewhere classifiedNew Xrays: Chest, 2 Views
--- NOTE | 2018-06-10 10:51 | UC ---
Shortness of Breath HPI - HPI Summary HPI Summary: 82-year-old male comes to clinic today with a chief complaint of shortness of breath. Patient is chronically on oxygen. He has a history of atrial fibrillation is on Coumadin. He also has history of CHF and COPD and pleural effusion. The shortness breath got worse about one week ago. He's having to sit up at night and increase his oxygen to 3-1/2 L at night. He does have pedal edema. He has sputum but is not been able bringing up. Denies any fevers. Denies chest pain. - History of Current Complaint Chief Complaint: UCRespiratory Stated Complaint: SOB Time Seen by Provider: 06/10/18 10:09 - Allergy/Home Medications Allergies/Adverse Reactions: Allergies Allergy/AdvReac Type Severity Reaction Status Date / Time iodine Allergy Severe swelling Verified 06/10/18 10:12 of face, lips and troat shellfish derived Allergy Severe swelling Verified 06/10/18 10:12 of face, lips and throat Cephalosporins Allergy Unknown Diarrhea Verified 06/10/18 10:12 spironolactone Allergy Unknown Diarrhea Verified 06/10/18 10:12 [From Aldactone] PMH/Surg Hx/FS Hx/Imm Hx Cardiovascular History: Congestive Heart Failure, Atrial Fibrillation Respiratory History: COPD - Surgical History Surgical History: Yes Surgery Procedure, Year, and Place: Femoral artery surgeries, 2 or 3 stents placed. 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 [facility] - Family History Known Family History: Positive: Hypertension, Diabetes - Social History Alcohol Use: None Substance Use Type: None Smoking Status (MU): Former Smoker Type: Cigarettes When Did the Patient Quit Smoking/Using Tobacco: 60 yrs ago - Immunization History Most Recent Tetanus Shot: UTD-2016 Review of Systems All Other Systems Reviewed And Are Negative: Yes Constitutional: Positive: Other - GENERALIZED WEAKNESS AND FATIGUE Skin: Positive: Negative Eyes: Positive: Negative ENT: Positive: Negative Respiratory: Positive: Shortness Of Breath, Cough Cardiovascular: Positive: Negative. Negative: Chest Pain Gastrointestinal: Positive: Negative Motor: Positive: Weakness Neurovascular: Positive: Negative Musculoskeletal: Positive: Edema Neurological: Positive: Weakness Psychological: Positive: Negative Is Patient Immunocompromised?: No Physical Exam Triage Information Reviewed: Yes Appearance: No Pain Distress, Other: - Patient appears weak and short of breath. Vital Signs: Initial Vital Signs Temp 96.6 F 06/10/18 10:13 Pulse 99 06/10/18 10:13 Resp 26 06/10/18 10:13 BP 132/51 06/10/18 10:13 Pulse Ox 84 06/10/18 10:13 Vital Signs Reviewed: Yes Eye Exam: Normal Eyes: Positive: Conjunctiva Clear ENT: Positive: Other - ORAL MUCOSA MOIST Neck exam: Normal Neck: Positive: Supple Respiratory: Positive: Respiratory distress - MILD AT REST, Rhonchi Cardiovascular: Positive: Other: - IRREGULAR Abdomen Description: Positive: Distended Musculoskeletal: Positive: Edema @ Neurological Exam: Normal Neurological: Positive: Alert Psychological Exam: Normal Psychological: Positive: Age Appropriate Behavior Skin Exam: Normal Shortness of Breath Dx - Course Course Of Treatment: The chest x-ray shows a left-sided infiltrate. I discussed this with the patient and his . They agreed to go to [facility] emergency department by ambulance. - Differential Dx/Diagnosis Provider Diagnoses: PNEUMONIA. SHORTNESS OF BREATH Discharge - Sign-Out/Discharge Documenting (check all that apply): Patient Departure All imaging exams completed and their final reports reviewed: Yes - Discharge Plan Condition: Stable Disposition: TRANS HIGHER LVL OF CARE FAC Referrals: Omer Junior DO [Primary Care Provider] - - Billing Disposition and Condition Condition: STABLE Disposition: Trans Higher Lvl of Care Fac
[2018-06-10] MEDS ORDERED: Albuterol/Ipratropium NEB.SOL* Albuterol 2.5 MG/Ipratropium 0.5 MG 3 ML INH ONE (10:52)
[2018-06-10 12:03] VITALS: BP 124/62
== END 2018-06-10 11:55 | disposition short-term general hospital (02) ==
LOC: UCCORT 10:08
DX: J18.9 Pneumonia, unspecified organism (principal); R06.02 Shortness of breath; J44.9 Chronic obstructive pulmonary disease, unspecified; I50.9 Heart failure, unspecified; Z91.013 Allergy to seafood; Z88.1 Allergy status to other antibiotic agents; Z88.8 Allergy status to other drugs, medicaments and biological substances; Z87.891 Personal history of nicotine dependence
CPT/HCPCS: 71046; 93005; 99213; A9270-GY; G0463

== ENCOUNTER 2018-07-20 11:04 | Emergency (ER) | payer MEDICARE ==
[2018-07-20 12:36] VITALS: BP 120/65
--- NOTE | 2018-07-20 13:27 | UC ---
Respiratory Complaint HPI - HPI Summary HPI Summary: Patient presents to urgent care with his . Patient has had a cough for 2-3 weeks. Patient has home physical therapy. She the physical therapist listened to his lungs and stated there was "noise "on the right base. Patient came to urgent care to be evaluated. Patient without fevers or chills. Patient without nausea vomiting. Patient without production to his cough. Patient states eating and drinking well. No changes to his bowel water. Patient was seen at urgent care in May for similar. At that time patient was diagnosed with a right pleural effusion. Patient is on 80 mg of Lasix twice a day. Patient has had thoracentesis with substantial fluid removed per his . Patient states he feels fine and doesn't know why he is here. Patient's medications reviewed this visit. Patient with a long list of past medical history that was also reviewed. 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, Medical Records, Other: - meds/ pmh list provided by Onset/Duration: Gradual Onset Severity Initially: Mild Severity Currently: Mild Pain Intensity: 0 Pain Scale Used: 0-10 Numeric Character: Cough: Nonproductive - Allergies/Home Medications Allergies/Adverse Reactions: Allergies Allergy/AdvReac Type Severity Reaction Status Date / Time iodine Allergy Severe swelling Verified 07/20/18 12:31 of face, lips and troat shellfish derived Allergy Severe swelling Verified 07/20/18 12:31 of face, lips and throat Cephalosporins Allergy Unknown Diarrhea Verified 07/20/18 12:31 spironolactone Allergy Unknown Diarrhea Verified 07/20/18 12:31 [From Aldactone] Home Medications: Home Medications Albuterol 2.5MG/3ML (0.083%)* [Ventolin 2.5 MG/3 ML NEB.CHICHO*] 1.25 mg INH Q4H PRN 07/20/18 [History Confirmed 07/20/18] Allopurinol TAB* [Zyloprim 300 MG TAB*] 300 mg PO DAILY 07/20/18 [History Confirmed 07/20/18] Cholecalciferol TAB* [Vitamin D TAB*] 1,000 unit PO DAILY 07/20/18 [History Confirmed 07/20/18] Furosemide TAB* [Lasix TAB*] 80 mg PO BID 07/20/18 [History Confirmed 07/20/18] Gabapentin TAB(NF) [Neurontin 600 mg TAB(NF)] 600 mg PO QID 07/20/18 [History Confirmed 07/20/18] Lisinopril TAB* [Prinivil TAB*] 2.5 mg PO DAILY 07/20/18 [History Confirmed ] Metoprolol Tartrate TAB* [Lopressor TAB*] 12.5 mg PO DAILY 07/20/18 [History Confirmed 07/20/18] Montelukast Sodium TAB* [Singulair TAB*] 10 mg PO DAILY 07/20/18 [History Confirmed 07/20/18] Nitroglycerin 0.4 MG/HR PATCH* [Nitroglycerin 10 MG PATCH*] 1 patch TRANSDERM SEE INSTRUCTIONS 07/20/18 [History Confirmed 07/20/18] Nitroglycerin TAB 0.4 MG* 0.4 mg SL SEE INSTRUCTIONS PRN 07/20/18 [History Confirmed 07/20/18] Omeprazole CAP* [Prilosec CAP* 20 MG] 20 mg PO DAILY 07/20/18 [History Confirmed 07/20/18] Potassium Chlor TAB* [Klor Con ER TAB*] 20 meq PO DAILY 07/20/18 [History Confirmed 07/20/18] Propylthiouracil TAB* [Ptu TAB*] 50 mg PO BID 07/20/18 [History Confirmed ] Simvastatin TAB(NF) [Zocor(NF)] 20 mg PO DAILY 07/20/18 [History Confirmed 07/20] Vitamin THERAPEUTIC TAB* [Theragran TAB*] 1 tab PO DAILY 07/20/18 [History Confirmed 07/20/18] Warfarin TAB(*) [Coumadin TAB(*)] 5 mg PO DAILY 07/20/18 [History Confirmed ] PMH/Surg Hx/FS Hx/Imm Hx Previously Healthy: No Endocrine History: Diabetes, Dyslipidemia Cardiovascular History: Cardiac Disease, Hypertension, Congestive Heart Failure Respiratory History: Pneumonia, Other - pleural effusion - Surgical History Surgical History: Yes Surgery Procedure, Year, and Place: Femoral artery surgeries, 2 or 3 stents placed. 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 Negative: Shortness Of Breath Physical Exam - Summary Physical Exam Summary: Vital Signs Reviewed: Yes A+Ox3, no distress Eyes: Conjunctiva Clear, MARTINA. EOM intact and full ENT: Hearing grossly normal TM x 2 clear, mmoist, uvula midline, no exudate, no erythema Neck: Positive: Supple Respiratory: Positive: No respiratory distress, No accessory muscle use no cough noted pt with diminished BS right base no cough. speaking full sentences 1+ edema b/l LE Cardiovascular: RRR nl s1, s2 no m/r CBT <2 sec abd soft + BS nt/nd no guarding, no distension Musculoskeletal Exam: DAVILA x 4 without difficulty Strength Intact, ROM Intact ambulatory to and from radiology with walker and no assistance Neurological: Positive: Alert, + sensation throughout Psychological: Positive: Normal Response To Family Skin: Positive: no rash, no ecchymosis Triage Information Reviewed: Yes Vital Signs: Initial Vital Signs Temp 97.2 F 07/20/18 12:29 Pulse 78 07/20/18 12:29 Resp 18 07/20/18 12:29 BP 120/65 07/20/18 12:29 Pulse Ox 96 07/20/18 12:29 Diagnostic Evaluation - Laboratory O2 Sat by Pulse Oximetry: 96 - Radiology Radiology Interpretation Completed By: Radiologist - Patient Name: SAL ALEJANDRE JR Medical Record#: [id number] Respiratory Course/Dx - Course Course Of Treatment: Patient presents to his urgent care with his . Patient with a cough for the last to 3 weeks. On exam patient with diminished breath sounds on the right. Patient with a complex medical history including recurrent pleural effusion, congestive heart failure, hypertension, coronary disease. On exam vital signs are stable. Patient walking this with a walker without assistance. Patient without obvious increased work of breathing. Patient without a noted cough. Patient was stable vital signs. Patient's chest x-ray shows persistent right-sided pleural effusion. Patient went to the emergency room for evaluation of this May. Patient's states he with his Lasix was adjusted he was in the hospital for 3 days and he may have had a thoracentesis at this time. I discussed with patient his x-ray finding of recurrent pleural effusion. Recommend patient reemerged department for further treatment and evaluation. Patient adamant she does not want to ED. Patient states he feels finding earlier sick and doesn't always here. Patient again encouraged ago. Patient states that not going. Patient given return precautions. Encourage patient is with call 911 or go to ED if he changes his mind. Recommend patient to ED but understanding he likely will not. Patient encouraged to follow up with primary care provider this week. Patient does have visiting nurse services that will be at his house tomorrow and will reevaluate his vitals. Patient and stated understanding recommendations and concerns. - Differential Dx/Diagnosis Provider Diagnosis: Cough, Pleural effusion on right Discharge - Sign-Out/Discharge Documenting (check all that apply): Patient Departure All imaging exams completed and their final reports reviewed: Yes - Discharge Plan Condition: Stable Disposition: HOME-RECOMMEND TO ED Patient Education Materials: Pleural Effusion (ED) Referrals: Omer Junior DO [Primary Care Provider] - Additional Instructions: The doctor that evaluated you today thinks that you need additional testing that can be completed the emergency department. It is recommended that you go directly to emergency department for further evaluation. This evaluation may include blood work or imaging. This testing will be directed and decided by the provider that evaluate you at the emergency department. If pain becomes worse, you feel lightheaded, you have uncontrolled vomiting, or you have any other concerns while you are being driven to emergency department as recommended to pullover and contact 911. It you decide not to go to the emergency department- you can change your mind and call 911 at any time. You should be rechecked tomorrow by your visiting nurse and schedule a follow- up appointment with your doctor this week. - Billing Disposition and Condition Condition: STABLE Disposition: Home-Recommend to ED
== END 2018-07-20 13:35 | disposition home health service (06) ==
LOC: UCCORT 11:04
DX: R05 Cough (principal); J90 Pleural effusion, not elsewhere classified; Z88.1 Allergy status to other antibiotic agents; Z88.8 Allergy status to other drugs, medicaments and biological substances; E11.9 Type 2 diabetes mellitus without complications; Z79.01 Long term (current) use of anticoagulants; E78.5 Hyperlipidemia, unspecified; I10 Essential (primary) hypertension; I50.9 Heart failure, unspecified; I26.99 Other pulmonary embolism without acute cor pulmonale; Z87.891 Personal history of nicotine dependence
CPT/HCPCS: 71046; 99212; G0463